=== PATIENT | male | born 1995 | race Caucasian/White ===

== ENCOUNTER 2022-12-27 08:31 | Emergency (ER) | payer MEDICAID, OTHER ==
[~2022-12-27] VITALS: Ht 172.7 cm; Wt 90.0 kg
[2022-12-27] MEDS ORDERED: LORAZEPAM 2MG/ML CPJ IV ONE (09:00)
[2022-12-27] MEDS ORDERED: SODIUM CHLORIDE 0.9% 1,000 ML IV ONE (09:00)
[2022-12-27] MEDS ORDERED: FOLIC ACID 1 MG, THIAMINE HCL 100 MG, MVI, ADULT NO.1 10 ML in DEXTROSE 5% WATER 1,000 ML IV ONE ×4 (09:00)
[2022-12-27] MEDS ORDERED: ONDANSETRON HCL 4MG/2ML INJ IV ONE (09:15)
[2022-12-27 09:47] LABS: HEMATOCRIT. 45.3 % (42.0-52.0); HEMOGLOBIN. 15.6 g/dL (14.0-18.0); MEAN CORPUSCULAR VOLUME 92.7 fL (80.0-94.0); MEAN PLATELET VOLUME 7.4 fl (7.4-10.4); PLATELET 439 x1000/uL (130-400); RED BLOOD CELL COUNT 4.88 mill/uL (4.7-6.1)
[2022-12-27 09:54] LABS: CHLORIDE 108 mEq/L (98-107)
[2022-12-27 10:42] LABS: ETHANOL BLOOD 331 mg/dL
[2022-12-27 10:48] LABS: PLATELET ESTIMATE INCREASED
[2022-12-27 11:35] VITALS: BP 143/105
[2022-12-27] MEDS ORDERED: ONDANSETRON 4MG ODT PO ONE (12:30)
== END 2022-12-27 13:09 | disposition home or self-care (01) ==
LOC: ER 08:31
DX: F10.229 Alcohol dependence with intoxication, unspecified (principal); F41.9 Anxiety disorder, unspecified; R00.0 Tachycardia, unspecified; Y90.8 Blood alcohol level of 240 mg/100 ml or more; Z87.891 Personal history of nicotine dependence
CPT/HCPCS: 36415; 71045; 80053; 80320; 83735; 83880; 84484; 85025; 93005; 99285; J7030; J3411; J3490; J7070; G0480

== ENCOUNTER 2022-12-27 15:16 | Emergency (ER) | payer MEDICAID, OTHER | END 2022-12-27 16:02 | disposition left against medical advice (07) | LOC: ER 15:27 | DX: Z53.21 Procedure and treatment not carried out due to patient leaving prior to being seen by health care provider (principal) ==

== ENCOUNTER 2024-01-19 06:33 | Emergency (ER) | payer MEDICAID, OTHER ==
[~2024-01-19] VITALS: Ht 175.3 cm; Wt 100.0 kg
[2024-01-19 06:39] VITALS: BP 139/103; PULSE 119; RESP 16; TEMP 97.6; O2SAT 96
[2024-01-19 08:45] LABS: EOSINOPHILS % 1.7 % (0.0-5.0); HEMATOCRIT. 45.3 % (42.0-52.0); HEMOGLOBIN. 15.6 g/dL (14.0-18.0); LYMPHOCYTES % 32.2 % (20.0-50.0); MEAN CORPUSCULAR HEMOGLOBIN 29.5 pg (28.0-32.0); MEAN CORPUSCULAR HGB CONC 34.5 g/dL (31.0-37.0); MEAN CORPUSCULAR VOLUME 85.6 fL (80.0-94.0); MEAN PLATELET VOLUME 7.3 fl (7.4-10.4); MONOCYTES % 7.7 % (2.0-8.0); NEUTROPHILS % 57.4 % (40.0-76.0); PLATELET 242 x1000/uL (130-400); RED CELL DISTRIBUTION WIDTH 14.2 % (11.6-14.6)
[2024-01-19 09:05] LABS: ALANINE AMINOTRANSFERASE 58 IU/L (10-49); ALBUMIN 4.7 g/dL (3.2-4.8); ASPARTATE AMINOTRANSFERASE 56 IU/L (<34); BILIRUBIN TOTAL 0.5 mg/dL (0.1-1.0); CALCIUM 8.3 mg/dL (8.7-10.4); CARBON DIOXIDE 23 mEq/L (21-32); CHLORIDE 103 mEq/L (98-107); CREATININE 0.9 mg/dL (0.6-1.3); GLUCOSE 113 mg/dL (70-105); PHOSPHORUS 3.3 mg/dL (2.5-4.9); POTASSIUM 3.8 mEq/L (3.5-5.1); PROTEIN TOTAL 7.8 g/dL (6.0-8.3); SODIUM 142 mEq/L (136-145); UREA NITROGEN BLOOD 10 mg/dL (9-23)
[2024-01-19] MEDS: ONDANSETRON HCL 4MG/2ML INJ IV ONE (09:38)
[2024-01-19] MEDS: FOLIC ACID 1 MG, THIAMINE HCL 100 MG, MVI, ADULT NO.1 10 ML in DEXTROSE 5% WATER 1,000 ML IV ONE (09:38)
[2024-01-19 09:46] LABS: ETHANOL BLOOD 138 mg/dL (<10)
[2024-01-19] MEDS: METOCLOPRAMIDE HCL 10MG/2ML VIAL IV ONE (12:30)
[2024-01-19] MEDS: LORAZEPAM 2MG/ML INJ IV ONE (12:30)
[2024-01-19] MEDS: KETOROLAC 30MG/ML VIAL IV ONE (12:30)
[2024-01-19] MEDS: FAMOTIDINE 20MG/2ML VIAL IV ONE (12:45)
[2024-01-19] MEDS ORDERED: FAMO-135 MT (13:18)
[2024-01-19] MEDS: FAMOTIDINE 20MG TABLET PO ONE (14:04)
[2024-01-19] MEDS: MAGNESIUM/ALUMINUM HYDROXIDE/SIMETHICONE 30ML UDC PO ONE (14:04)
[2024-01-19] MEDS: SODIUM CHLORIDE 0.9% 1,000 ML IV ONE (14:05)
== END 2024-01-19 15:04 | disposition home or self-care (01) ==
LOC: ER 06:33
DX: F10.129 Alcohol abuse with intoxication, unspecified (principal); K76.0 Fatty (change of) liver, not elsewhere classified; F41.9 Anxiety disorder, unspecified; Y90.6 Blood alcohol level of 120-199 mg/100 ml
CPT/HCPCS: 80053; 80320; 83690; 83735; 84100; 85025; 36415; 74176; 96365; 96366; 96375; 99285; J3490 ×3; J1885; J2060; J2765; J2405; J3411; J7070; J7030; Z7610 ×3; G0480